=== PATIENT | female | born 1940 | race Caucasian/White ===

== ENCOUNTER 2022-03-16 08:20 | Emergency (ER) | payer MEDICARE, OTHER ==
[2022-03-16 08:37] VITALS: O2SAT 98
--- NOTE | 2022-03-16 08:45 | ERPHSYRPT ---
- History of Present Illness Time Seen by Provider: 03/16/22 08:42 Patient Subjective Stated Complaint: Pt states "I have been having problems with my sugar." Triage Nursing Assessment: Pt presented alert and oriented X 3, skin pwd. Pt ambulates with an upright steady gait, able to speak in clear full sentences. Pt in no apparent respiratory distress. Physician History: Patient is 81-year-old female came to the emergency room with the low blood sugar episode. She tested her blood sugar in the morning today and which was 51 she felt little bit weak so she came to the emergency room. Patient has been on Ozempic(semaglutide) and insulin for 1.5 units/h continuous. Since patient was started on Ozempic patient has not been eating as she has no appetite she is eat ing less and less. She is checking her blood sugar frequently and it runs in the range of 100 250 but last night she did not eat well and so at around 6:00 when she checked her sugar it was only 51. She denies any other symptoms. She is alert awake oriented to time place and person in the emergency room and is answering all the question correctly. Timing/Duration: today Associated Symptoms: denies symptoms Allergies/Adverse Reactions: No Known Drug Allergies Allergy (Verified 03/16/22 08:42) Home Medications: Dapagliflozin Propanediol [Farxiga] 10 mg PO DAILY 03/16/22 [History] Insulin Aspart [NovoLOG Insulin] 1 unit IM DAILY 03/16/22 [History] Insulin Pump Cart,Cont Inf,Bt [Omnipod Dash Pods (Gen 4)] 1 03/16/22 [History] Semaglutide [Ozempic] 1 mg SQ WEEKLY 03/16/22 [History] Hx Tetanus, Diphtheria Vaccination/Date Given: Yes Hx Influenza Vaccination/Date Given: Yes Hx Pneumococcal Vaccination/Date Given: Yes Immunizations Up to Date: Yes Travel Risk - International Travel Have you traveled outside of the country in past 3 weeks: No - Coronavirus Screening Are you exhibiting any of the following symptoms?: No Close contact with a COVID-19 positive Pt in past 14-21 Days: No - Vaccine Status Have you recieved a Covid-19 vaccination: Yes Bdr: Unknown - Vaccination Dates Dates if Unknown: 2020 - Review of Systems Constitutional: Weakness, No Fever, No Chills Eyes: No Symptoms Ears, Nose, & Throat: No Symptoms Respiratory: No Cough, No Dyspnea Cardiac: No Chest Pain, No Edema, No Syncope Abdominal/Gastrointestinal: No Abdominal Pain, No Nausea, No Vomiting, No Diarrhea Genitourinary Symptoms: No Dysuria Musculoskeletal: No Back Pain, No Neck Pain Skin: No Rash Neurological: No Dizziness, No Focal Weakness, No Sensory Changes Psychological: No Symptoms Endocrine: No Symptoms All Other Systems: Reviewed and Negative - Past Medical History Pertinent Past Medical History: Yes Neurological History: No Pertinent History Cardiac History: High Cholesterol, Hypertension Respiratory History: No Pertinent History Endocrine Medical History: Diabetes Type II, Hypothyroidism, Other Musculoskeletal History: Osteoarthritis Other Medical History: PATIENT REPORTS SEES MD FOR KIDNEYS. HAS HX OF HIGH CHOLESTEROL BUT WAS TAKEN OFF OF MEDS DUE TO KIDNEY ISSUES. THYROID WAS REMOVED D/T HYPERTHYROIDISM . - Social History Smoking Status: Never smoker Exposure to second hand smoke: No Drug Use: none Patient Lives Alone: No - Nursing Vital Signs Nursing Vital Signs: Initial Vital Signs Temperature 97.7 F 03/16/22 08:26 Pulse Rate 87 03/16/22 08:26 Respiratory Rate 20 03/16/22 08:26 Blood Pressure 177/91 03/16/22 08:26 O2 Sat by Pulse Oximetry 98 03/16/22 08:26 Pain Scale Pain Intensity 0 - Physical Exam General Appearance: no apparent distress, alert Eye Exam: PERRL/EOMI, eyes nml inspection Ears, Nose, Throat Exam: normal ENT inspection, TMs normal, pharynx normal, moist mucous membranes Neck Exam: normal inspection, non-tender, supple, full range of motion Respiratory Exam: normal breath sounds, lungs clear, No respiratory distress Cardiovascular Exam: regular rate/rhythm, normal heart sounds, normal peripheral pulses Gastrointestinal/Abdomen Exam: soft, normal bowel sounds, No tenderness, No mass Back Exam: normal inspection, normal range of motion, No CVA tenderness, No vertebral tenderness Extremity Exam: normal inspection, normal range of motion, pelvis stable Neurologic Exam: alert, oriented x 3, cooperative, normal mood/affect, nml cerebellar function, nml station & gait, sensation nml, No motor deficits Skin Exam: normal color, warm, dry, No rash Lymphatic Exam: No adenopathy SpO2: 98 - Course Nursing assessment & vital signs reviewed: Yes Ordered Tests: Active Orders 24 hr Category Date Time Status CBC W DIFF Stat Lab 03/16/22 08:50 Completed CMP Stat Lab 03/16/22 08:50 Completed MAGNESIUM Stat Lab 03/16/22 08:50 Completed POCT GLUCOSE Stat Lab 03/16/22 08:32 Received POCT GLUCOSE Stat Lab 03/16/22 08:33 Completed UA W/RFX CULTURE Stat Lab 03/16/22 09:07 Results Medication Summary Discontinued Medications Generic Name Dose Route Start Last Admin Trade Name Victor Hugo PRN Reason Stop Dose Admin Ceftriaxone Sodium 1,000 mg 03/16/22 09:23 Ceftriaxone Sodium 1000 Mg Inj Vial IM 03/16/22 09:24 STAT ONE Lab/Rad Data: Laboratory Result Diagrams 03/16/22 08:50 03/16/22 08:50 Laboratory Results 03/16/22 03/16/22 03/16/22 Range/Units 09:07 08:50 08:50 WBC (4.0-10.5) x10^3/uL RBC (4.1-5.4) x10^6/uL Hgb (12.0-16.0) g/dL Hct (35-47) % MCV (78-100) fL MCH (26-32) pg MCHC (32-36) g/dL RDW (11.5-14.0) % Plt Count (150-450) x10^3/uL MPV (7.5-11.0) fL Gran % (36.0-66.0) % Immature Gran % (Auto) (0.00-0.4) % Nucleat RBC Rel Count (0.00-0.1) % Eos # (Auto) (0-0.5) x10^3/uL Immature Gran # (Auto) (0.00-0.03) x10^3u/L Absolute Lymphs (auto) (1.0-4.6) x10^3/uL Absolute Monos (auto) (0.0-1.3) x10^3/uL Absolute Nucleated RBC (0.00-0.01) x10^3u/L Lymphocytes % (24.0-44.0) % Monocytes % (0.0-12.0) % Eosinophils % (0.00-5.0) % Basophils % (0.0-0.4) % Absolute Granulocytes (1.4-6.9) x10^3/uL Basophils # (0-0.4) x10^3/uL Sodium 135 L (137-145) mmol/L Potassium 3.4 L (3.5-5.1) mmol/L Chloride 98 (98-107) mmol/L Carbon Dioxide 29 (22-30) mmol/L Anion Gap 12.0 (5-15) MEQ/L BUN 30 H (7-17) mg/dL Creatinine 2.39 H (0.52-1.04) mg/dL Estimated GFR 20.8 ML/MIN Glucose 132 H (74-106) mg/dL POC Glucometer (74 to 106) mg/dL Hemoglobin A1c 6.03 H (4.5-6.0) % Calcium 9.1 (8.4-10.2) mg/dL Magnesium 2.1 (1.6-2.3) mg/dL Total Bilirubin 0.50 (0.2-1.3) mg/dL AST 41 H (14-36) U/L ALT 37 H (0-35) U/L Alkaline Phosphatase 98 (38-126) U/L Serum Total Protein 7.8 (6.3-8.2) g/dL Albumin 4.5 (3.5-5.0) g/dL Urinalys Dipstick Clnc MAIN LAB Urine Color YELLOW (YELLOW) Urine Appearance CLOUDY A (CLEAR) Urine pH 7.0 (5-6) Ur Specific [place] 1.015 (1.005-1.025) POC Urine Protein Conf 100 A (Negative) Urine Ketones NEGATIVE (NEGATIVE) Urine Nitrite NEGATIVE (NEGATIVE) Urine Bilirubin NEGATIVE (NEGATIVE) Urine Urobilinogen 0.2 (0-1) mg/dL Urine Leukocytes MODERATE A (NEGATIVE) Urine WBC (Auto) >100 A (0-5) /HPF Urine RBC (Auto) 3-5 A (0-2) /HPF U Epithel Cells (Auto) NONE (FEW) /HPF Urine Bacteria (Auto) PACKED A (NEGATIVE) /HPF Urine RBC SMALL A (0-5) Rohan/ul Ur Culture Indicated? YES Urine Glucose 500 A (NEGATIVE) mg/dL 03/16/22 03/16/22 Range/Units 08:50 08:33 WBC 8.8 (4.0-10.5) x10^3/uL RBC 4.40 (4.1-5.4) x10^6/uL Hgb 13.6 (12.0-16.0) g/dL Hct 41.4 (35-47) % MCV 94.1 (78-100) fL MCH 30.9 (26-32) pg MCHC 32.9 (32-36) g/dL RDW 13.2 (11.5-14.0) % Plt Count 270 (150-450) x10^3/uL MPV 8.5 (7.5-11.0) fL Gran % 78.0 H (36.0-66.0) % Immature Gran % (Auto) 0.6 H (0.00-0.4) % Nucleat RBC Rel Count 0.0 (0.00-0.1) % Eos # (Auto) 0.15 (0-0.5) x10^3/uL Immature Gran # (Auto) 0.05 H (0.00-0.03) x10^3u/L Absolute Lymphs (auto) 1.27 (1.0-4.6) x10^3/uL Absolute Monos (auto) 0.41 (0.0-1.3) x10^3/uL Absolute Nucleated RBC 0.00 (0.00-0.01) x10^3u/L Lymphocytes % 14.4 L (24.0-44.0) % Monocytes % 4.7 (0.0-12.0) % Eosinophils % 1.7 (0.00-5.0) % Basophils % 0.6 (0.0-0.4) % Absolute Granulocytes 6.87 (1.4-6.9) x10^3/uL Basophils # 0.05 (0-0.4) x10^3/uL Sodium (137-145) mmol/L Potassium (3.5-5.1) mmol/L Chloride (98-107) mmol/L Carbon Dioxide (22-30) mmol/L Anion Gap (5-15) MEQ/L BUN (7-17) mg/dL Creatinine (0.52-1.04) mg/dL Estimated GFR ML/MIN Glucose (74-106) mg/dL POC Glucometer 142 H (74 to 106) mg/dL Hemoglobin A1c (4.5-6.0) % Calcium (8.4-10.2) mg/dL Magnesium (1.6-2.3) mg/dL Total Bilirubin (0.2-1.3) mg/dL AST (14-36) U/L ALT (0-35) U/L Alkaline Phosphatase (38-126) U/L Serum Total Protein (6.3-8.2) g/dL Albumin (3.5-5.0) g/dL Urinalys Dipstick Clnc Urine Color (YELLOW) Urine Appearance (CLEAR) Urine pH (5-6) Ur Specific [place] (1.005-1.025) POC Urine Protein Conf (Negative) Urine Ketones (NEGATIVE) Urine Nitrite (NEGATIVE) Urine Bilirubin (NEGATIVE) Urine Urobilinogen (0-1) mg/dL Urine Leukocytes (NEGATIVE) Urine WBC (Auto) (0-5) /HPF Urine RBC (Auto) (0-2) /HPF U Epithel Cells (Auto) (FEW) /HPF Urine Bacteria (Auto) (NEGATIVE) /HPF Urine RBC (0-5) Rohan/ul Ur Culture Indicated? Urine Glucose (NEGATIVE) mg/dL - Progress Progress: improved Counseled pt/family regarding: lab results, diagnosis, need for follow-up - Departure Departure Disposition: Home Clinical Impression: Hypoglycemia associated with diabetes UTI (urinary tract infection) Qualifiers: Urinary tract infection type: acute pyelonephritis Qualified Code(s): N10 - Acute pyelonephritis Condition: Stable Critical Care Time: Yes Critical Care Time(excluding separately billable procedures): Critical 30-74 mins Referrals: JENNIFER PUENTE NP [Primary Care Provider] - Follow up/PCP as directed Instructions: Urinary Tract Infection, Adult (DC), Low Blood Sugar, Adult (DC), Low Blood Sugar in People With Diabetes, Low Blood Sugar, Adult ED Additional Instructions: Discharge/Care Plan ALKURTIS SOUZA was seen on 03/16/22 in the Emergency Room. The patient was counseled regarding Diagnosis,Lab results, Imaging studies, need for follow up and when to return to the Emergency Room. Prescriptions given: Discharge Note I have spoken with the patient and/or caregivers. I have explained the patient's condition, diagnosis and treatment plan based on the information available to me at this time. I have answered the patient's and/or caregiver's questions and addressed any concerns. The patient and/or caregivers have as good understanding of the patient's diagnosis, condition and treatment plan as can be expected at this point. The vital signs have been stable. The patient's condition is stable and appropriate for discharge from the emergency department. The patient will pursue further outpatient evaluation with the primary care physician or other designated or consulting physician as outlined in the discharge instructions. The patient and/or caregivers are agreeable to this plan of care and follow-up instructions have been explained in detail. The patient and/or caregivers have received these instruction. The patient/and or caregivers are aware that any significant change in condition or worsening of symptoms should prompt an immediate return to this or the closest emergency department or call 911. ALKURTIS SOUZA was seen on 03/16/22 n the Emergency Room. At that time you were treated for an emergent condition, during your visit Laboratory, Radiology and/or other procedures may have been ordered. It is very important that you follow-up with your Primary Care Physician JENNIFER PUENTE within the next 24-48 hours to review your Emergency Room visit and the final results of testing that was ordered. Some test results such as Urine Cultures, Blood Cultures, and other cultures if ordered will not be finalized for 24-48 hours. If you do not have a Primary Care Provider please call the medical records department at [phone] ext [phone] to obtain a copy of your results or you may sign into our patient portal to obtain these results by visiting us @ [email or web address] and completing the following steps: 1. Click on the Patient Portal link 2. Click the Patient Self Enrollment Link to complete the enrollment form and entering your 3. Once the enrollment form is completed you will receive an email with a temporary ID and password at the email address you provided. 4. Next choose a user name and password. Your user name must be at least 4 characters long and your password must be at least 4 characters long. 5. Choose a security question from the list and provide your answer to the question. If you already have signed into the Health Portal you may access your Health Care Information 01/12 by the following steps: 1. Login to our website @ [email or web address] 2. Enter your original user name and password. FAQS The [facility] Health Portal is an online tool that contains your Lab Results, Radiology Reports, Visit History, Discharge Instructions and Health Summary Lab and Radiology Results will not be available for 72 hours on the portal. The Portal is a secure site, passwords are encryted and URLs are re-written so they cannot be copied and pasted. You and authorized family members are the only ones who can access your Portal. Also there is a timeout feature that protects your information if you leave the Portal page open. If you have technical difficulty please use the Contact Us link on the page this will allow you to submit any questions you have regarding the Portal or you may contact the Medical Record Department at [phone] ext [phone]. Prescriptions: Smz/Tmp Ds Tablet [Bactrim Ds Tablet] 1 udtab PO BID #14 tablet
[2022-03-16 09:05] LABS: ALBUMIN 4.5 g/dL (3.5-5.0); Absolute Neutrophil Ct (ANC) 6.87 x10^3/uL (1.4-6.9); BILIRUBIN,TOTAL 0.5 mg/dL (0.2-1.3); Basophil (Absolute #) 0.05 x10^3/uL (0-0.4); Calcium 9.1 mg/dL (8.4-10.2); Creatinine 1 2.39 mg/dL (0.52-1.04); EST GLOMERULAR FILTRATION RATE 20.8 ML/MIN; Eosinophil % 1.7 % (0.00-5.0); Eosinophil (Absolute #) 0.15 x10^3/uL (0-0.5); Hematocrit 41.4 % (35-47); Hemoglobin 13.6 g/dL (12.0-16.0); Lymphocyte (Absolute #) 1.27 x10^3/uL (1.0-4.6); Lymphocytes % 14.4 % (24.0-44.0); MAGNESIUM 2.1 mg/dL (1.6-2.3); Mean Cell Volume 94.1 fL (78-100); Mean Corpuscular Hemoglobin 30.9 pg (26-32); Mean Corpuscular Hgb Concent. 32.9 g/dL (32-36); Mean Platelet Volume 8.5 fL (7.5-11.0); Monocyte (Absolute #) 0.41 x10^3/uL (0.0-1.3); Monocytes % 4.7 % (0.0-12.0); Platelet Count 270 x10^3/uL (150-450); Potassium 3.4 mmol/L (3.5-5.1); Red Cell Distribution Width 13.2 % (11.5-14.0); Total Protein 7.8 g/dL (6.3-8.2); White Blood Count 8.8 x10^3/uL (4.0-10.5)
[2022-03-16 09:08] LABS: Appearance CLOUDY (CLEAR); Bilirubin NEGATIVE (NEGATIVE); Dipstick done @ ? MAIN LAB; Glucose 500 mg/dL (NEGATIVE); Ketones NEGATIVE (NEGATIVE); Nitrite NEGATIVE (NEGATIVE); Protein,Urine Dip 100 (Negative); RBC SMALL Ery/ul (0-5); Specific Gravity 1.015 (1.005-1.025); Urobilinogen 0.2 mg/dL (0-1)
[2022-03-16 09:15] LABS: Bacteria PACKED /HPF (NEGATIVE); WBC >100 /HPF (0-5)
[2022-03-16 09:19] LABS: Urine Cultured Indicated? YES
[2022-03-16] MEDS ORDERED: Rocephin 1000 MG INJ IM ONE (09:23)
[2022-03-16 09:35] VITALS: BP 118/64; PULSE 85
[2022-03-16] MEDS ORDERED: Rocephin 1000 MG INJ ONE (09:35)
== END 2022-03-16 09:54 | disposition home or self-care (01) ==
LOC: ED 08:20
DX: E11.649 Type 2 diabetes mellitus with hypoglycemia without coma (principal); N10 Acute pyelonephritis; R53.1 Weakness; E78.5 Hyperlipidemia, unspecified; I10 Essential (primary) hypertension; Z79.4 Long term (current) use of insulin; Z79.84 Long term (current) use of oral hypoglycemic drugs; Z79.85 Long-term (current) use of injectable non-insulin antidiabetic drugs; Z79.899 Other long term (current) drug therapy
CPT/HCPCS: 36415; 80053; 81015; 82947; 83036; 83735; 85025; 87077; 87086; 87186; 96372; 99283; 99291; J0696

== ENCOUNTER 2022-03-18 01:27 | Emergency (ER) | payer MEDICARE, OTHER ==
[2022-03-18 01:44] VITALS: O2SAT 98
[2022-03-18] MEDS ORDERED: Sodium Chloride 0.9% 1000 ML 1,000 ML ONE (02:02)
[2022-03-18] MEDS ORDERED: ROCEPHIN 1 Gm-D5w 50 ml Bag** 1 G/50 ML IVPB IV ONE (02:02)
[2022-03-18] MEDS: ROCEPHIN 1 Gm-D5w 50 ml Bag** 1 G/50 ML IVPB IV STA (02:03)
[2022-03-18] MEDS: Sodium Chloride 0.9% 1000 ML 1,000 ML IV STA (02:03)
[2022-03-18 02:14] LABS: Absolute Neutrophil Ct (ANC) 5.89 x10^3/uL (1.4-6.9); Basophil (Absolute #) 0.07 x10^3/uL (0-0.4); Eosinophil (Absolute #) 0.27 x10^3/uL (0-0.5); Hematocrit 39.8 % (35-47); Hemoglobin 13.3 g/dL (12.0-16.0); Lymphocytes % 22.3 % (24.0-44.0); Mean Cell Volume 92.3 fL (78-100); Mean Corpuscular Hemoglobin 30.9 pg (26-32); Mean Corpuscular Hgb Concent. 33.4 g/dL (32-36); Mean Platelet Volume 8.8 fL (7.5-11.0); Monocyte (Absolute #) 0.71 x10^3/uL (0.0-1.3); Monocytes % 7.9 % (0.0-12.0); Neutrophil % 65.7 % (36.0-66.0); Platelet Count 308 x10^3/uL (150-450); Red Blood Count 4.31 x10^6/uL (4.1-5.4); Red Cell Distribution Width 13.2 % (11.5-14.0)
--- NOTE | 2022-03-18 02:16 | ERPHSYRPT ---
- History of Present Illness Time Seen by Provider: 03/18/22 01:35 Source: patient, family Exam Limitations: no limitations Patient Subjective Stated Complaint: pt states she was here two days ago, states her blood sugar is 95 and feels cold and anxious. Triage Nursing Assessment: pt is alert and oriented, ambulated to room and is resting in bed at this time, pt states that she is cold and nervous. Physician History: This is a 81-year-old white female patient who is diabetic and is a patient of nurse practitioner Francia and presents with "feeling as though she is freezing to ". On 03/16/2022 patient was seen in this emergency department and was diagnosed with pyelonephritis and put on Bactrim DS. She has only had 2 or 3 doses of the antibiotic. Patient is concerned because she is diabetic and because of her sensation of feeling cold and shaky she thought she better come into the emergency department and be evaluated again. I checked microbiology for update of the culture and sensitivity that was taken on the urine on 03/16/2022 and it is still pending. Patient arrives to the emergency department afebrile and her vital signs are stable. Blood sugar levels were 95. Patient denies chest pain. Patient denies shortness of breath. Patient denies abdominal pain. She has had no nausea vomiting or diarrhea symptoms. Timing/Duration: today Activites at Onset: none Quality: other (No pain) Pain Radiation: none Severity of Pain-Max: none Severity of Pain-Current: none Prior abdominal problems: none Sexual intercourse history: non-contributory Modifying Factors: Improves With: nothing Associated Symptoms: denies symptoms, other (Patient feels as though she is freezing and shaky) Allergies/Adverse Reactions: No Known Drug Allergies Allergy (Verified 03/16/22 08:42) Home Medications: Dapagliflozin Propanediol [Farxiga] 10 mg PO DAILY 03/16/22 [History] Insulin Aspart [NovoLOG Insulin] 1 unit IM DAILY 03/16/22 [History] Insulin Pump Cart,Cont Inf,Bt [Omnipod Dash Pods (Gen 4)] 1 03/16/22 [History] Semaglutide [Ozempic] 1 mg SQ WEEKLY 03/16/22 [History] Hx Tetanus, Diphtheria Vaccination/Date Given: Yes Hx Influenza Vaccination/Date Given: Yes Hx Pneumococcal Vaccination/Date Given: Yes Travel Risk - International Travel Have you traveled outside of the country in past 3 weeks: No - Coronavirus Screening Are you exhibiting any of the following symptoms?: No Close contact with a COVID-19 positive Pt in past 14-21 Days: No - Vaccine Status Have you recieved a Covid-19 vaccination: Yes Emergency Medicine Physician Assistant: Unknown - Vaccination Dates Dates if Unknown: unknown - Review of Systems Constitutional: No Symptoms Eyes: No Symptoms Ears, Nose, & Throat: No Symptoms Respiratory: No Symptoms Cardiac: No Symptoms Abdominal/Gastrointestinal: No Symptoms Genitourinary Symptoms: No Symptoms Musculoskeletal: No Symptoms Skin: No Symptoms Neurological: No Symptoms Psychological: Anxiety Endocrine: No Symptoms Hematologic/Lymphatic: No Symptoms Immunological/Allergic: No Symptoms All Other Systems: Reviewed and Negative - Past Medical History Pertinent Past Medical History: Yes Neurological History: No Pertinent History Cardiac History: High Cholesterol, Hypertension Respiratory History: No Pertinent History Endocrine Medical History: Diabetes Type II, Hypothyroidism, Other Musculoskeletal History: Osteoarthritis Other Medical History: PATIENT REPORTS SEES MD FOR KIDNEYS. HAS HX OF HIGH CH OLESTEROL BUT WAS TAKEN OFF OF MEDS DUE TO KIDNEY ISSUES. THYROID WAS REMOVED D/T HYPERTHYROIDISM . - Past Surgical History Past Surgical History: Yes Other Surgical History: x2 and tummy tuck - Social History Smoking Status: Never smoker Exposure to second hand smoke: No Drug Use: none Patient Lives Alone: No - Nursing Vital Signs Nursing Vital Signs: Initial Vital Signs Temperature 97.8 F 03/18/22 01:31 Pulse Rate 81 03/18/22 01:31 Respiratory Rate 18 03/18/22 01:31 Blood Pressure 148/73 03/18/22 01:31 O2 Sat by Pulse Oximetry 98 03/18/22 01:31 Pain Scale Pain Intensity 0 - Physical Exam General Appearance: no apparent distress, alert, anxiety Eye Exam: PERRL/EOMI, eyes nml inspection Ears, Nose, Throat Exam: normal ENT inspection, moist mucous membranes Neck Exam: normal inspection, non-tender, supple, full range of motion Respiratory Exam: normal breath sounds, lungs clear, airway intact, No chest tenderness, No respiratory distress Cardiovascular Exam: regular rate/rhythm, normal heart sounds, normal peripheral pulses Gastrointestinal/Abdomen Exam: soft, normal bowel sounds, No tenderness Pelvic Exam: not done Rectal Exam: not done Back Exam: normal inspection, normal range of motion, No CVA tenderness, No vertebral tenderness Extremity Exam: normal inspection, normal range of motion, pelvis stable Neurologic Exam: alert, oriented x 3, cooperative, state assessed properties director II-XII nml as tested, normal mood/affect, nml cerebellar function, nml station & gait, sensation nml Skin Exam: normal color, warm, dry Lymphatic Exam: No adenopathy SpO2 Interpretation: normal SpO2: 98 O2 Delivery: Room Air Ordered Tests: Active Orders 24 hr Category Date Time Status IV Insertion STAT Care 03/18/22 01:54 Active BLOOD CULTURE Stat Lab 03/18/22 02:10 Received CBC W DIFF Stat Lab 03/18/22 01:50 Completed CMP Stat Lab 03/18/22 01:50 Received Lactic Acid Stat Lab 03/18/22 01:54 Completed Medication Summary Generic Name Dose Route Start Last Admin Trade Name Freq PRN Reason Stop Dose Admin Sodium Chloride 1,000 mls @ 999 mls/hr 03/18/22 01:54 03/18/22 02:03 Sodium Chloride 0.9% 1000 Ml IV 03/18/22 02:54 999 mls/hr .[id number] STA Administration Discontinued Medications Generic Name Dose Route Start Last Admin Trade Name Freq PRN Reason Stop Dose Admin Ceftriaxone Sodium/Dextrose 1 g in 50 mls @ 100 mls/hr 03/18/22 01:55 03/18/22 02:03 Rocephin 1 Gm-D5w 50 Ml Bag IV 03/18/22 02:24 100 ml/hr STAT STA 100 mls/hr Administration Sodium Chloride Confirm 03/18/22 02:02 Sodium Chloride 0.9% 1000 Ml Administered 03/18/22 02:03 Dose 1,000 mls @ ud .ROUTE .STK-MED ONE Ceftriaxone Sodium/Dextrose Confirm 03/18/22 02:02 Rocephin 1 Gm-D5w 50 Ml Bag Administered 03/18/22 02:03 Dose 1 g in 50 mls @ ud IV .STK-MED ONE Levofloxacin 500 mg 03/18/22 02:16 03/18/22 02:20 Levofloxacin 500 Mg Tablet PO 03/18/22 02:17 500 mg STAT ONE Administration Levofloxacin Confirm 03/18/22 02:19 Levofloxacin 500 Mg Tablet Administered 03/18/22 02:20 Dose 500 mg .ROUTE .STK-MED ONE Lab/Rad Data: Laboratory Result Diagrams 03/18/22 01:50 Laboratory Results 03/18/22 03/18/22 Range/Units 01:54 01:50 WBC 9.0 (4.0-10.5) x10^3/uL RBC 4.31 (4.1-5.4) x10^6/uL Hgb 13.3 (12.0-16.0) g/dL Hct 39.8 (35-47) % MCV 92.3 (78-100) fL MCH 30.9 (26-32) pg MCHC 33.4 (32-36) g/dL RDW 13.2 (11.5-14.0) % Plt Count 308 (150-450) x10^3/uL MPV 8.8 (7.5-11.0) fL Gran % 65.7 (36.0-66.0) % Immature Gran % (Auto) 0.3 (0.00-0.4) % Nucleat RBC Rel Count 0.0 (0.00-0.1) % Eos # (Auto) 0.27 (0-0.5) x10^3/uL Immature Gran # (Auto) 0.03 (0.00-0.03) x10^3u/L Absolute Lymphs (auto) 2.00 (1.0-4.6) x10^3/uL Absolute Monos (auto) 0.71 (0.0-1.3) x10^3/uL Absolute Nucleated RBC 0.00 (0.00-0.01) x10^3u/L Lymphocytes % 22.3 L (24.0-44.0) % Monocytes % 7.9 (0.0-12.0) % Eosinophils % 3.0 (0.00-5.0) % Basophils % 0.8 (0.0-0.4) % Absolute Granulocytes 5.89 (1.4-6.9) x10^3/uL Basophils # 0.07 (0-0.4) x10^3/uL Lactic Acid 1.3 (0.4-2.0) - Progress Progress: improved Air Movement: good Progress Note: 03/18/22 02:29 Lab called me back at 0225 and inform me that the sensitivities of urine culture obtained on 03/16/2022 is susceptible/sensitive to Bactrim DS which this patient is taking. Blood Culture(s) Obtained: Yes Antibiotics given: Yes Counseled pt/family regarding: lab results, diagnosis, need for follow-up - Departure Departure Disposition: Home Clinical Impression: UTI (urinary tract infection) Condition: Stable Critical Care Time: No Referrals: JENNIFER PUENTE, DIRECTOR PRODUCT [Primary Care Provider] - Follow up/PCP as directed Additional Instructions: Continue antibiotic as prescribed. Monitor your blood sugar closely. Follow-up with your primary care physician for further evaluation and management.
[2022-03-18] MEDS ORDERED: Levofloxacin 500 MG Tablet ONE (02:19)
[2022-03-18] MEDS: Levofloxacin 500 MG Tablet PO ONE (02:20)
[2022-03-18 02:32] LABS: ALBUMIN 4.7 g/dL (3.5-5.0); ANION GAP 14.8 MEQ/L (5-15); BILIRUBIN,TOTAL 0.4 mg/dL (0.2-1.3); Calcium 9.6 mg/dL (8.4-10.2); Creatinine 1 2.85 mg/dL (0.52-1.04); Potassium 3.6 mmol/L (3.5-5.1); Total Protein 7.6 g/dL (6.3-8.2)
[2022-03-18 03:03] VITALS: BP 135/62; PULSE 56
== END 2022-03-18 03:15 | disposition home or self-care (01) ==
LOC: ED 01:27
DX: N39.0 Urinary tract infection, site not specified (principal); R68.83 Chills (without fever); E78.5 Hyperlipidemia, unspecified; I10 Essential (primary) hypertension; E11.9 Type 2 diabetes mellitus without complications; Z79.4 Long term (current) use of insulin; Z79.84 Long term (current) use of oral hypoglycemic drugs; Z79.85 Long-term (current) use of injectable non-insulin antidiabetic drugs
CPT/HCPCS: 36000; 36415; 80053; 83605; 85025; 87040; 96374; 96375; 99283; J0696; A9270-GY